=== PATIENT | female | born 1955 | race African-American/Black ===

== ENCOUNTER 2022-02-20 10:49 | Emergency (ER) | payer MEDICAID, OTHER ==
[~2022-02-20] VITALS: Ht 167.6 cm; Wt 67.0 kg
[2022-02-20 12:12] LABS: BASOPHILS % 1.2 % (0.0-2.0); HEMATOCRIT. 40.9 % (36.0-48.0); HEMOGLOBIN. 13.6 g/dL (12.0-16.0); MEAN CORPUSCULAR HEMOGLOBIN 34.2 pg (28.0-32.0); MEAN CORPUSCULAR VOLUME 102.6 fL (81.0-99.0); MEAN PLATELET VOLUME 6.7 fl (7.4-10.4); MONOCYTES % 8.4 % (2.0-8.0); NEUTROPHILS % 70.4 % (40.0-76.0); PLATELET 200 x1000/uL (130-400); RED BLOOD CELL COUNT 3.99 mill/uL (4.2-5.4); RED CELL DISTRIBUTION WIDTH 14.9 % (11.6-14.6)
[2022-02-20 12:20] LABS: CHLORIDE 111 mEq/L (98-107)
[2022-02-20 12:29] LABS: ETHANOL BLOOD 36 mg/dL
[2022-02-20 12:59] LABS: CLARITY URINE CLOUDY (CLEAR); COLOR URINE YELLOW (YELLOW); KETONES URINE NEGATIVE (NEGATIVE); LEUKOCYTE ESTERASE URINE 2+ (NEGATIVE); NITRITE URINE NEGATIVE (NEGATIVE); OCCULT BLOOD URINE NEGATIVE (NEGATIVE); PH URINE 5.5 (4.5-8.0); PROTEIN URINE 1+ (NEGATIVE); SPECIFIC GRAVITY URINE 1.017 (1.005-1.030)
[2022-02-20 13:21] LABS: *AMPHETAMINES SCREEN URINE NEGATIVE (NEGATIVE); *BARBITURATES SCREEN URINE NEGATIVE (NEGATIVE); *BENZODIAZEPINES SCREEN URINE NEGATIVE (NEGATIVE); *COCAINE SCREEN URINE NEGATIVE (NEGATIVE); CANNABINOID URINE SCREEN NEGATIVE (NEGATIVE); METHADONE URINE SCREEN NEGATIVE (NEGATIVE); OPIATES URINE SCREEN NEGATIVE (NEGATIVE); PHENCYCLIDINE URINE SCREEN NEGATIVE (NEGATIVE)
[2022-02-20] MEDS ORDERED: THIAMINE HCL 100MG TABLET PO ONE (13:30)
[2022-02-20] MEDS ORDERED: MULT-1146 MT (14:19)
[2022-02-20] MEDS ORDERED: THIA50TA12 MT (14:19)
[2022-02-20 14:20] VITALS: BP 180/92
== END 2022-02-20 14:31 | disposition home or self-care (01) ==
LOC: ER 10:49
DX: R20.2 Paresthesia of skin (principal); D53.9 Nutritional anemia, unspecified; F10.10 Alcohol abuse, uncomplicated; E56.9 Vitamin deficiency, unspecified; E11.9 Type 2 diabetes mellitus without complications; F12.10 Cannabis abuse, uncomplicated; I10 Essential (primary) hypertension; F17.210 Nicotine dependence, cigarettes, uncomplicated; Y90.1 Blood alcohol level of 20-39 mg/100 ml
CPT/HCPCS: 36415; 80053; 80305; 80320; 81003; 83735; 84100; 85025; 99284; G0480